=== PATIENT | male | born 1950 | race Two or more races ===

== ENCOUNTER 2024-07-12 09:08 | Emergency (ER) | payer BC, OTHER ==
[~2024-07-12] VITALS: Ht 172.7 cm; Wt 81.8 kg
[2024-07-12] MEDS: ACETAMINOPHEN 500 MG TAB PO ONE (10:39)
[2024-07-12] MEDS ORDERED: ACET-1080 PO (10:39)
[2024-07-12 10:43] VITALS: BP 140/93; PULSE 99; RESP 16; TEMP 98.1; O2SAT 99
== END 2024-07-12 10:48 | disposition home or self-care (01) ==
LOC: ER 09:08 → EDBD 09:08 → ER 10:48
DX: G44.209 Tension-type headache, unspecified, not intractable (principal); I10 Essential (primary) hypertension; E11.9 Type 2 diabetes mellitus without complications
CPT/HCPCS: 70450

== ENCOUNTER 2025-09-16 19:08 | Emergency (ER) | payer OTHER ==
[~2025-09-16] VITALS: Ht 170.2 cm; Wt 65.0 kg
[~2025-09-16 19:08] MED LIST: ACET-1080 PO
[2025-09-16 19:40] VITALS: TEMP 97.9
[2025-09-16 19:49] VITALS: PULSE 98; RESP 21; O2SAT 97
--- NOTE | 2025-09-16 20:27 | ED.PDOC ---
History of Present Illness HPI Comments 75M presents to the ER w/ daughter and the c/c of generalized weakness. Daughter reports on the pt having had /D for the past 2 days and came in to the ER today due from being concerned of the pt's movements being limited today. Denies any other symptoms at this time. Denies chills, fever, N/V/D, SOB, CP. Denies any other associated symptom's, modifiers, or recent injuries or sick contact at this time. Chief Complaint: General Weakness Time Seen by MD: 20:30 Primary Care Provider: "I DON'T KNOW THE NAME" Reviewed Notes: Nurses Notes, Medications, Allergies Allergies: Coded Allergies: NO KNOWN ALLERGIES (Unverified , 07/12/24) Home Meds Active Scripts Acetaminophen (Tylenol 8 Hour Arthritis) 650 Mg Tab, 650 MG PO TID, #30 TAB Prov:JONE BARRETT 07/12/24 Information Source: Patient Mode of Arrival: EMS Severity: Moderate Timing: Hours Duration: Since onset, Hours Prehospital treatment: None Past Medical History PAST MEDICAL HISTORY: Unknown Surgical History: Denies all surgeries Family History Family History: Reviewed,noncontributory to illness, Unknown Social History Smoker: Non-Smoker Alcohol: Denies ETOH Use Drugs: Denies Drug Use Lives In: Home Constitutional: reports: weakness; denies: chills, diaphoresis, fatigue, fever, malaise, sweats, others EENTM: denies: blurred vision, double vision, ear bleeding, ear discharge, ear drainage, ear pain, ear ringing, eye pain, eye redness, hearing loss, mouth pain, mouth swelling, nasal discharge, nose bleeding, nose congestion, nose pain, photophobia, tearing, throat pain, throat swelling, voice changes, others Respiratory: denies: cough, hemoptysis, orthopnea, SOB at rest, shortness of breath, SOB with excertion, stridor, wheezing, others Cardiovascular: denies: chest pain, dizzy spells, diaphoresis, Dyspnea on exertion, edema, irregular heart beat, left arm pain, lightheadedness, palpitations, PND, syncope, others Gastrointestinal: reports: diarrhea; denies: abdomen distended, abdominal pain, blood streaked bowels, constipated, dysphagia, difficulty swallowing, hematemesis, melena, nausea, poor appetite, poor fluid intake, rectal bleeding, rectal pain, vomiting, others Genitourinary: denies: burning, dysuria, flank pain, frequency, hematuria, incontinence, penile discharge, penile sore, pain, testicle pain, testicle swelling, urgency, others Neurological: denies: dizziness, fainting, headache, left sided numbness, left sided weakness, numbness, paresthesia, pre-existing deficit, right sided numbness, right sided weakness, seizure, speech problems, tingling, tremors, weakness, others Musculoskeletal: denies: back pain, gout, joint pain, joint swelling, muscle pain, muscle stiffness, neck pain, others Integumetry: denies: bruises, change in color, change in hair/nails, dryness, laceration, lesions, lumps, rash, wounds, others Allergic/Immunocompromised: denies: Difficulty Healing, Frequent Infections, Hives, Itching, others Hematologic/Lymphatic: denies: anemia, blood clots, easy bleeding, easy bruising, swollen glands, others Endocrine: denies: excessive hunger, excessive sweating, excessive thirst, excessive urination, flushing, intolerance to cold, intolerance to heat, unexplained weight gain, unexplained weight loss, others Psychiatric: denies: anxiety, bipolar disorder, depression, hopeless, panic disorder, schizophrenia, sleepless, suicidal, others All Other Systems: Reviewed and Negative Physical Exam General Appearance: No Apparent Distress, Normal HEENT: Normal ENT Inspection, Pharynx Normal, TMs Normal Neck: Full Range of Motion, Non-Tender, Normal, Normal Inspection Respiratory: Chest Non-Tender, Lungs Clear, No Accessory Muscle Use, No Respiratory Distress, Normal Breath Sounds Cardiovascular: No Edema, No JVD, No Murmur, No Gallop, Normal Peripheral Pulses, Regular Rate/Rhythm Breast Exam: Deferred Gastrointestinal: No Organomegaly, Non Tender, No Pulsatile Mass, Normal Bowel Sounds, Soft Genitalia: Deferred Pelvic: Deferred Rectal: Deferred Extremities: No calf tenderness, Normal capillary refill, Normal inspection, Normal range of motion, Non-tender, No pedal edema Musculoskeletal : Apperance: Normal Neurologic: Alert, manager policy II-XII nml as Tested, No Motor Deficits, Normal Affect, Normal Mood, No Sensory Deficits Cerebellar Function: Normal Reflexes: Normal Skin: Dry, Normal Color, Warm Lymphatic: No Adenopathy Was a procedure done? Was a procedure done?: No Differential Dx Considerations may include: Influenza, COVID, dehydration, diarrhea, gastroenteritis, urosepsis X-Ray, Labs, Meds, VS Vital Signs Date Time Temp Pulse Resp B/P (MAP) Pulse Ox O2 Delivery O2 Flow Rate FiO2 09/16/25 22:00 87 14 155/52 (86) 98 09/16/25 21:00 86 18 136/27 (63) 97 09/16/25 19:49 98 21 97 Room Air* 0 21 09/16/25 19:40 97.9 98 21 128/49 (75) 97 97.9 09/16/25 19:25 98 09/16/25 19:19 98.3 95 20 174/67 98 98.3 Lab Test 09/16/25 19:32 Range/Units White Blood Count 12.4 H 4.4-10.8 10^3/uL Red Blood Count 4.00 L 4.5-5.90 10^6/uL Hemoglobin 12.1 L 13.5-17.5 g/dL Hematocrit 36.1 L 41.0-53.0 % Mean Corpuscular Volume 90.2 80.0-100.0 fL Mean Corpuscular Hemoglobin 30.3 28.0-32.0 pg Mean Corpuscular Hemoglobin Concent 33.6 32.0-36.0 g/dL Red Cell Distribution Width 13.8 11.8-14.3 % Platelet Count 382 140-450 10^3/uL Mean Platelet Volume 7.5 6.9-10.8 fL Neutrophils (%) (Auto) 74.6 37.0-80.0 % Lymphocytes (%) (Auto) 19.2 10.0-50.0 % Monocytes (%) (Auto) 4.8 0.0-12.0 % Eosinophils (%) (Auto) 0.8 0.0-7.0 % Basophils (%) (Auto) 0.6 0.0-2.0 % Neutrophils # (Auto) 9.2 H 1.6-8.6 10 ^3/uL Lymphocytes # (Auto) 2.4 0.4-5.4 10 ^3/uL Monocytes # (Auto) 0.6 0-1.3 10 ^3/uL Eosinophils # (Auto) 0.1 0-0.8 10 ^3/uL Basophils # (Auto) 0.1 0-0.2 10 ^3/uL Nucleated Red Blood Cells 0.0 % Sodium Level 141 136-145 mmol/L Potassium Level 5.1 3.5-5.1 mmol/L Chloride Level 107 98-107 mmol/L Carbon Dioxide Level 22 20-31 mmol/L Anion Gap 12 5-15 Blood Urea Nitrogen 38 H 9-23 mg/dL Creatinine 1.75 H 0.700-1.30 mg/dL Glomerular Filtration Rate Calc 40 >90 mL/min BUN/Creatinine Ratio 21.7 H 10.0-20.0 Serum Glucose 201 H 74-106 mg/dL Calcium Level 9.2 8.7-10.4 mg/dL X-Ray, Labs, Meds, VS Comment Patient to be admitted for generalized weakness, acute kidney injury, acute diarrhea Patient be an IV bolus We will recheck a BUN creatinine for improved kidney function There may be need for web content & social media manager as patient will be unable to care for himself at home Time of 1ST Reevaluation: 21:00 Reevaluation 1ST: Unchanged Patient Education/Counseling: Diagnosis, Treatment, Prognosis Family Education/Counseling: No Family Present SEPSIS Sepsis Screen Date sepsis recognized/suspect: Sep 16, 2025 Time Sepsis recognized/suspect: 1939 Recent Procedure: No On Antibiotic Therapy: No Respiratory Rate >20: Yes Heart Rate >90: Yes Temp<36 C (96.8 F) or >38.3 C: No SBP <90 or MAP <65 mmHG: No New Acute Mental Status Change: No Is the patient on CPAP, BIPAP,: No Physician Orders Electrocardigram (09/16/25 19:26) Urinalysis (09/16/25 19:31) Chest Xray 1 View (09/16/25 20:03) Stool Bacterial Culture (09/16/25 20:03) Sodium Chloride 0.9% (09/16/25 23:30) Vital Signs Date Time Temp Pulse Resp B/P (MAP) Pulse Ox O2 Delivery O2 Flow Rate FiO2 09/16/25 22:00 87 14 155/52 (86) 98 09/16/25 21:00 86 18 136/27 (63) 97 09/16/25 19:49 98 21 97 Room Air* 0 21 09/16/25 19:40 97.9 98 21 128/49 (75) 97 97.9 09/16/25 19:25 98 09/16/25 19:19 98.3 95 20 174/67 98 98.3 Laboratory Tests Test 09/16/25 19:32 White Blood Count 12.4 10^3/uL (4.4-10.8) H Departure 1 Departure Time of Disposition: 23:25 Impression: Primary Impression: Acute diarrhea Additional Impressions: Generalized weakness Acute kidney injury Disposition: ADMITTED INPATIENT Condition: Stable Critical Care Note Critical Care Time?: No Stability Stability form required: No Heart Score Heart Score: Heart Score Response (Comments) Value History N/A 0 EKG N/A 0 Age N/A 0 Risk Factors N/A 0 Troponin N/A 0 Total 0 I personally scribed for NARDA CHRISTIANSON ([email or web address]) on 09/16/25 at 20:27. Electronically submitted by Connor Pop ([email or web address]). NARDA CHRISTIANSON Sep 16, 2025 20:27
--- NOTE | 2025-09-16 20:29 | DVH ---
CHEST RADIOGRAPH Indication: gen weak Technique: Single frontal view of the chest was obtained Comparison: None FINDINGS: Lines and Tubes: None Lungs: No focal consolidation. Pleura: No effusion. No pneumothorax. Cardiomediastinal contours: Unremarkable Bones: No acute osseous abnormality. IMPRESSION: 1. No acute cardiopulmonary disease.
[2025-09-16 20:40] LABS: Hematocrit 36.1 % (41.0-53.0); Hemoglobin 12.1 g/dL (13.5-17.5); Mean Corpuscular Hemoglobin 30.3 pg (28.0-32.0); Mean Corpuscular Volume 90.2 fL (80.0-100.0); Nucleated Red Blood Cells % 0.0 %
[2025-09-16 20:48] LABS: Potassium 5.1 mmol/L (3.5-5.1); Sodium 141 mmol/L (136-145)
[2025-09-16 20:49] LABS: Anion Gap 12 (5-15); Calcium 9.2 mg/dL (8.7-10.4); Carbon Dioxide 22 mmol/L (20-31)
[2025-09-16 20:52] LABS: Chloride 107 mmol/L (98-107)
[2025-09-16 20:54] LABS: BUN/Creatinine Ratio 21.7 (10.0-20.0)
[2025-09-16 20:55] LABS: Blood Urea Nitrogen 38 mg/dL (9-23); Glucose 201 mg/dL (74-106)
[2025-09-16] MEDS: SODIUM CHLORIDE 0.9% 1,000 ML IV ONE (23:46)
--- NOTE | 2025-09-17 01:26 | DVH ---
Exam: CT CT AB PEL WO CON-NO ORAL OR IV History: diarrhea Comparison Study: None Technique: Multidetector spiral CT of the abdomen was performed from lung bases to pubic symphysis. I maging was performed without IV contrast. Axial, coronal and sagittal multiplanar reformats were obta ined from the axial data set by the technologist. Radiation Dose : 1. Abdomen/Pelvis: CTDIvol 7.7 mGy, DLP 444.61 mGy*cm. Findings: Evaluation of solid organs is limited due to lack of intravenous contrast use. Lung Bases: No acute or significant lung base finding. Normal heart size. No pleural or pericardial effusion. Liver: The liver is normal in size. No focal lesions. Gallbladder and Biliary Tree: Unremarkable Spleen: Unremarkable Pancreas: The pancreas is grossly normal in appearance. Adrenal Glands: Unremarkable Kidneys: Kidneys are grossly normal without calculi or hydronephrosis. Bladder: Grossly unremarkable for degree of distention. Bowel: The stomach is grossly normal in appearance. Small bowel and colon are normal in caliber and d istribution. The appendix is normal. Ascites: Absent Lymphadenopathy: No mesenteric, retroperitoneal or periportal lymphadenopathy. Abdominal Wall and Mesentery: Unremarkable. Vasculature: The visualized abdominal aorta is normal in size and caliber. Atherosclerotic vascular c alcifications. Evaluation of abdominal and pelvic vessels is limited due to lack of intravenous cont rast. Pelvic Organs: The prostate is enlarged, measuring 5.5 cm transverse. Musculoskeletal: No aggressive focal bony lesions, acute fractures or dislocation. IMPRESSION: 1. No acute abdominal or pelvic findings. 2. Enlarged prostate. Radiation optimization: All CT scans at this facility use at least one of these dose optimization oly hniques: automated exposure control mA and/or kV adjustment per patient size (includes targeted exam s where dose is matched to clinical indication) or iterative reconstruction.
[2025-09-17 02:00] VITALS: BP 146/56; PULSE 91; RESP 18; O2SAT 98
[2025-09-17 03:06] LABS: COVID19 ANTIGEN SOFIA FIA NEGATIVE (NEGATIVE)
--- NOTE | 2025-09-17 03:40 | ECG ---
[facility] Test Date: 2025-09-16 Test Time: 19:25:40 Pat Name: MONTANA ZAVALETA Department: [facility] ED Patient ID: [facility]-[id number] Room: Gender: M Recreational Leader: SARA : 1950 Requested By: GEREMIAS PETERSEN Order Number: [id number] Reading MD: Measurements Intervals [place] Rate: 98 P: 54 [place]: 150 QRS: 52 QRSD: 80 T: 27 QT: 349 QTc: 446 Interpretive Statements Sinus rhythm Baseline wander in lead(s) II,III,aVF Please click the below link to view image of tracing.
== END 2025-09-17 03:42 | disposition home or self-care (01) ==
LOC: EDBD 19:08 → ER 19:08
DX: N17.9 Acute kidney failure, unspecified (principal); R53.1 Weakness; R19.7 Diarrhea, unspecified; Z79.899 Other long term (current) drug therapy; Z20.822 Contact with and (suspected) exposure to COVID-19
CPT/HCPCS: 36415; 71045; 74176; 80048; 82947; 85025; 87426; 87804; 93005; 96360; 99285; J7030